=== PATIENT | female | born 1950 | race Caucasian/White ===

== ENCOUNTER 2018-05-18 22:25 | Emergency (ER) | payer MEDICARE, OTHER, SELFPAY ==
[2018-05-18 22:41] VITALS: BP 156/62; PULSE 76; RESP 14; TEMP 37.2; O2SAT 98; BMI 28.3
[2018-05-18 23:08] VITALS: BP 156/62; PULSE 76; RESP 14; TEMP 37.2; O2SAT 98; BMI 28.3
--- NOTE | 2018-05-18 23:20 | ED_ITS ---
HPI - Female Genitourinary General Chief complaint: Urogenital-Female Stated complaint: states bladder infection Time Seen by Provider: 05/18/18 22:37 Source: patient and family Mode of arrival: ambulatory Limitations: no limitations History of Present Illness HPI Narrative: Patient presents to the emergency department with a chief complaint urinary frequency, urgency, dysuria and hematuria over the course of the day. She denies fever, chills or back pain but does admit to some mild nausea. She has had chills but not any shaking or suggestion of rigors. MD Complaint: dysuria and UTI Onset (ago): hour(s) Female Urogenital Radiation: Suprapubic Quality: Aching Duration: constant Relieving factors: none Exacerbating factors: none Urinary symptoms: Difficulty Urinating, Dysuria, Frequency, Hematuria and Urgency Related Data Previous Rx's Medication Instructions Recorded levothyroxine [Synthroid] 0.075 mg PO QAM #90 tab 06/20/17 azithromycin [Zithromax] 250 mg PO QDAY #6 tab 08/16/17 cephalexin [Keflex] 500 mg PO QID 7 Days #28 cap 05/18/18 Allergies Allergy/AdvReac Type Severity Reaction Status Date / Time No Known Drug Allergies Allergy Verified 05/18/18 22:41 Review of Systems Review of Systems All systems reviewed & are unremarkable except as noted in HPI and below Constitutional Denies chills, Denies fever(s), Denies lethargy and Denies weakness Eyes Denies change in vision, Denies eye discharge, Denies irritation and Denies loss of vision ENT Ears, Nose, Mouth, and Throat: Denies change in voice, Denies neck pain and Denies sore throat Cardiovascular Denies chest pain, Denies irregular heart rhythm, Denies lightheadedness, Denies palpitations, Denies dyspnea, Denies dyspnea on exertion and Denies orthopnea Respiratory Denies cough, Denies dyspnea, Denies dyspnea on exertion and Denies wheezing Gastrointestinal Gastrointestinal: Denies abdominal pain, Denies change in bowel habits, Denies diarrhea, Reports nausea and Denies vomiting Genitourinary Denies hematuria, Reports urinary frequency, Reports dysuria, Denies flank pain , Denies urinary incontinence and Reports urinary urgency Musculoskeletal Denies neck pain Integumentary/Breasts Denies pruritus, Denies erythema, Denies rash and Denies wounds Neurologic Denies confusion, Denies loss of vision and Denies weakness Psychiatric Denies anxiety, Denies confusion, Denies depression, Denies homicidal ideation and Denies suicidal ideation Endocrine Denies palpitations Hematologic/Lymphatic Denies easy bruising Allergic/Immunologic Denies wheezing [facility] Surgical History Status post hysterectomy (09/20/16) Social History Smoking Status: Never smoker Exam Initial Vital Signs Initial Vital Signs: Vital Signs Temperature 98.9 F 05/18/18 22:41 Pulse Rate 76 05/18/18 22:41 Respiratory Rate 14 05/18/18 22:41 Blood Pressure 156/62 H 05/18/18 22:41 Pulse Oximetry 98 05/18/18 22:41 Const General: cooperative and well developed Nutritional Appearance: well nourished Orientation: alert, awake, oriented x3 and not confused HENMT Head: normocephalic and atraumatic Ears: external ears normal and TM's normal bilaterally Nose: external nose normal and No nasal discharge Face and sinus: sinuses nontender, face symmetric, no sinus tenderness and No dry mucous membranes Mouth: oral mucosae normal and moist mucous membranes Teeth and gingiva: dentition normal Throat: tonsils normal and uvula midline Resp Effort & Inspection: normal respiratory effort, able to speak in complete sentences, no respiratory distress and no use of accessory muscles Auscultation: clear to auscultation bilaterally, no rales, no rhonchi and no wheezes Cardio Rate: regular rate Rhythm: regular rhythm Heart Sounds: no click, no gallops, no murmurs and no rubs Pulses: normal peripheral pulses Skin General: no rashes or lesions noted, No jaundice and No petechiae Course Orders Ordered: Discontinued Medications Cefazolin Sodium (Keflex) 1 bottle [facility] [place] SEEINSTR ONE Stop: 05/19/18 00:00 Vital Signs - 8 hr 05/18/18 22:41 05/18/18 23:08 Temperature 98.9 F 98.9 F Pulse Rate 76 76 Respiratory Rate 14 14 Blood Pressure 156/62 H 156/62 H Pulse Oximetry 98 98 MDM - Female Genitourinary Lab Data Lab Results 05/18/18 Range/Units 22:30 Urine Color Red Urine Appearance Sl cloudy Urine pH 7.5 (4.5-8.0) Ur Specific [place] 1.010 (1.000-1.035) Urine Protein 2+ H (Negative) Urine Glucose (UA) Negative (Normal) g/dL Urine Ketones Negative (NEGATIVE) Urine Occult Blood 3+ H (Negative) Urine Nitrate Positive H (Negative) Urine Bilirubin Negative (NEGATIVE) Urine Urobilinogen 0.2 (0.2) E.U./dL Ur Leukocyte Esterase 2+ H (NEGATIVE) Urine RBC 30-100/hpf H (0-5/HPF) Urine WBC 30-100/hpf H (0-5/HPF) Ur Squamous Epith Cells 0-1 /hpf Urine Bacteria Few (2-10) H (None) Ur Culture Indicated? Specimen cultured Discharge Plan Departure Patient Disposition: Home, Self-Care Clinical Impression: Urinary tract infection Discharge Date/Time: 05/19/18 00:34 Interventions: ED Discharge Assessment Last Done: 05/19/18 00:33 Instructions: DI for Urinary Tract Infection (UTI) Activity Restrictions/Additional Instructions: *You have been diagnosed with [ acute urinary tract infection, possible early pyelonephritis ] *What to do: *Take medications as directed *Follow up with your primary care provider in 2-3 days [and follow up with ortho, urology etc] *Return to ER if you should have [such as] [or] any new, worsening or concerning symptoms Prescriptions: New cephalexin [Keflex] 500 mg capsule 500 mg PO QID 7 Days Qty: 28 RF: 0 No Action levothyroxine [Synthroid] 75 MCG tablet 0.075 mg PO QAM Qty: 90 RF: 3 azithromycin [Zithromax] 250 MG tablet 250 mg PO QDAY Qty: 6 RF: 0 Referrals: Desirae Hernandez DO [Primary Care Provider] -
[2018-05-18 23:42] LABS: Appearance Urine UA SL CLOUDY; Bilirubin Urine UA NEGATIVE (NEGATIVE); Color Urine UA RED; Glucose Urine UA NEGATIVE (Normal); Ketones Urine UA NEGATIVE (NEGATIVE); Leukocyte Esterase Urine UA 2+ (NEGATIVE); Occult Blood Urine UA 3+ (Negative); Protein Urine UA 2+ (Negative); Urobilinogen Urine UA 0.2 E.U./dL (0.2); pH Urine UA 7.5 (4.5-8.0)
[2018-05-18 23:45] LABS: Bacteria Urine Few (2-10); Culture Indicated Urine Specimen Cultured; Nitrite Urine UA POSITIVE (Negative); RBC Urine 30-100/HPF (0-5/HPF); Squamous Epithelial Cell Urine 0-1 /HPF; WBC Urine 30-100/HPF (0-5/HPF)
[2018-05-19 00:33] VITALS: BP 133/67; PULSE 100; RESP 16; O2SAT 98
== END 2018-05-19 00:34 | disposition home or self-care (01) ==
PROVIDERS: Emergency Provider Emergency Medicine; Family Provider Family Medicine; PCP Family Medicine
DX: N39.0 Urinary tract infection, site not specified (principal)
CPT/HCPCS: 81001; 87077; 87086; 87186; 99282; 99283

== ENCOUNTER → 2018-07-28 08:39 | Outpatient (CLI) | payer MEDICARE, OTHER, SELFPAY ==
[2018-07-28 09:36] LABS: Add Manual Diff / Slide Review NO; Basophils Percent Auto 0.3 % (0-2); Eosinophils Percent Auto 2.4 % (2-4); Hematocrit 38.7 % (36-46); Hemoglobin 13.1 g/dL (12.0-16.0); Lymphocytes Percent Auto 14.1 % (25-40); Mean Corpuscular HGB Conc 33.7 % (30-36); Mean Corpuscular Hemoglobin 31.2 PG (26-34); Mean Corpuscular Volume 92.3 fL (80-100); Monocytes Percent Auto 5.6 % (3-14); Neutrophils Absolute Auto 5400 /uL (3000-5900); Neutrophils Percent Auto 77.6 % (50-75); Platelet Count 258 X10^3/uL (150-400); Red Blood Cell Count 4.19 X10^6/uL (4.0-5.2); Red Cell Distribution Width 14.1 % (11.6-14.8); White Blood Cell Count 6.9 X10^3/uL (4.5-11.0)
[2018-07-28 09:47] LABS: Alanine Aminotransferase 35 IU/L (9-52); Albumin Globulin Ratio 1.3 (1.0-2.8); Alkaline Phosphatase 76 U/L (38-126); Aspartate Aminotransferase 27 IU/L (14-36); BUN Creatinine Ratio 23.8 (6-22); Bilirubin Total 0.7 mg/dL (0.2-1.3); Blood Urea Nitrogen 19 mg/dL (7-17); Calcium 9.3 mg/dL (8.4-10.2); Carbon Dioxide 31 mmol/L (22-32); Chloride 106 mmol/L (98-107); Cholesterol 165 mg/dL (140-199); Estimated Glomerular Filt Rate > 60.0 mL/min (>60); Glucose 96 mg/dL (80-110); HDL Cholesterol 57 mg/dL (40-60); HEMOLYSIS < 15 (0-50); LDL Cholesterol Calculated 92 mg/dL (<100); Potassium 4.3 mmol/L (3.4-5.1); Sodium 145 mmol/L (137-145); Triglycerides 78 mg/dL (35-150)
[2018-07-28 11:27] LABS: Free T3, Triiodothyronine Free 2.72 pg/mL (2.77-5.27); Free T4, Direct Thyroxine 1.45 ng/dL (0.78-2.19)
[2018-07-28 12:38] LABS: Thyroid Stimulating Hormone 0.93 uIU/mL (0.47-4.68)
[2018-08-01 14:05] LABS: Fecal Immunochemical Test NOT DETECTED
== END ==
PROVIDERS: Family Provider Family Medicine; PCP Family Medicine; Visit Provider Family Medicine
DX: E03.9 Hypothyroidism, unspecified (principal); Z13.220 Encounter for screening for lipoid disorders; Z51.81 Encounter for therapeutic drug level monitoring
CPT/HCPCS: 80053; 80061; 82274; 84439; 84443; 84481; 85025

== ENCOUNTER → 2018-08-03 13:11 | Outpatient (CLI) | payer MEDICARE, OTHER, SELFPAY | PROVIDERS: PCP Family Medicine; Visit Provider Family Medicine | DX: Z13.820 Encounter for screening for osteoporosis (principal); M85.852 Other specified disorders of bone density and structure, left thigh; Z78.0 Asymptomatic menopausal state; E07.9 Disorder of thyroid, unspecified; E28.39 Other primary ovarian failure; Z82.62 Family history of osteoporosis | CPT/HCPCS: 77080 ==

== ENCOUNTER → 2018-08-16 09:09 | Outpatient (CLI) | payer MEDICARE, OTHER, SELFPAY ==
--- NOTE | 2018-08-16 | DI.MG.S_ITS ---
BILATERAL DIGITAL SCREENING MAMMOGRAM 3D/2D WITH CAD: 08/16/2018 CLINICAL: Routine screening. Comparison is made to exams dated: 05/20/2017 mammogram, 05/18/2016 mammogram, and 08/30/2012 mammogram - [facility]. The tissue of both breasts is heterogeneously dense. This may lower the sensitivity of mammography. Current study was also evaluated with a Computer Aided Detection (CAD) system. No significant masses, calcifications, or other findings are seen in either breast. There has been no significant interval change. IMPRESSION: NEGATIVE There is no mammographic evidence of malignancy. A 1 year screening mammogram is recommended.(08/17/2019) This exam was interpreted at Station ID: [id number]. NOTE: For mammograms, a report in lay terms will be sent to the patient. Approximately 15% of breast malignancies will not be visualized mammographically. In the management of a palpable breast mass, a negative mammogram must not discourage biopsy of a clinically suspicious lesion. Electronically Signed By: oFrest landon/nickie:08/16/2018 11:07:53 letter sent: Normal Exam ACR BI-RADS Category 1: Negative 3341F
== END ==
PROVIDERS: PCP Family Medicine; Visit Provider Family Medicine
DX: Z12.31 Encounter for screening mammogram for malignant neoplasm of breast (principal)
CPT/HCPCS: 77063; 77067

== ENCOUNTER → 2019-02-02 09:19 | Outpatient (CLI) | payer MEDICARE, OTHER, SELFPAY | PROVIDERS: PCP Family Medicine; Visit Provider Physician Assistant | DX: R30.0 Dysuria (principal) | CPT/HCPCS: 87086 ==

== ENCOUNTER → 2019-05-15 07:35 | Outpatient (CLI) | payer MEDICARE, OTHER, SELFPAY ==
[2019-05-15 08:04] LABS: Add Manual Diff / Slide Review NO; Basophils Absolute Auto 0 /uL (0-100); Basophils Percent Auto 0.5 % (0-2); Eosinophils Absolute Auto 200 /uL (0-450); Eosinophils Percent Auto 4.8 % (2-4); Hematocrit 36.9 % (36-46); Hemoglobin 12.4 g/dL (12.0-16.0); Lymphocytes Absolute Auto 1100 /uL (1100-4500); Lymphocytes Percent Auto 23.9 % (25-40); Mean Corpuscular HGB Conc 33.5 % (30-36); Mean Corpuscular Hemoglobin 31.2 PG (26-34); Monocytes Absolute Auto 300 /uL (0-900); Monocytes Percent Auto 7.3 % (3-14); Neutrophils Absolute Auto 2900 /uL (1500-7000); Neutrophils Percent Auto 63.5 % (50-75); Platelet Count 252 X10^3/uL (150-400); Red Blood Cell Count 3.97 X10^6/uL (4.0-5.2); Red Cell Distribution Width 14.2 % (11.6-14.8); White Blood Cell Count 4.6 X10^3/uL (4.5-11.0)
[2019-05-15 08:20] LABS: Alanine Aminotransferase 20 IU/L (9-52); Albumin 3.9 g/dL (3.5-5.0); Albumin Globulin Ratio 1.4 (1.0-2.8); Alkaline Phosphatase 60 U/L (38-126); Aspartate Aminotransferase 26 IU/L (14-36); BUN Creatinine Ratio 21.3 (6-22); Bilirubin Total 0.4 mg/dL (0.2-1.3); Blood Urea Nitrogen 17 mg/dL (7-17); Calcium 8.8 mg/dL (8.4-10.2); Carbon Dioxide 30 mmol/L (22-32); Chloride 106 mmol/L (98-107); Cholesterol 167 mg/dL (140-199); Estimated Glomerular Filt Rate > 60.0 mL/min (>60); Globulin 2.8 g/dL (1.7-4.1); Glucose 106 mg/dL (80-110); HDL Cholesterol 59 mg/dL (40-60); HEMOLYSIS < 15 (0-50); LDL Cholesterol Calculated 94 mg/dL (<100); Potassium 4.1 mmol/L (3.4-5.1); Sodium 143 mmol/L (137-145); Total Protein 6.7 g/dL (6.3-8.2); Triglycerides 71 mg/dL (35-150)
[2019-05-15 09:15] LABS: Free T4, Direct Thyroxine 1.27 ng/dL (0.78-2.19)
[2019-05-15 09:29] LABS: Thyroid Stimulating Hormone 2.69 uIU/mL (0.47-4.68)
[2019-05-15 09:33] LABS: TSH w/ Reflex to FT4 2.67 uIU/mL (0.47-4.68)
== END ==
PROVIDERS: PCP Family Medicine; Visit Provider Family Medicine
DX: E03.9 Hypothyroidism, unspecified (principal); M85.80 Other specified disorders of bone density and structure, unspecified site; Z51.81 Encounter for therapeutic drug level monitoring
CPT/HCPCS: 36415; 80053; 80061; 84439; 84443; 85025

== ENCOUNTER → 2019-07-30 12:04 | Outpatient (CLI) | payer MEDICARE, OTHER, SELFPAY ==
--- NOTE | 2019-07-30 12:06 | DI.RAD.S_ITS ---
PROCEDURE: XR ANKLE LT MIN 3V INDICATIONS: Left ankle pain TECHNIQUE: 3 views of the ankle were acquired. COMPARISON: None. FINDINGS: Bones: No fractures or dislocations. Ankle mortise is normally aligned. No suspicious bony lesions. Soft tissues: No tibiotalar joint effusion. Achilles tendon appears normal. IMPRESSION: No ankle fracture or dislocation. Intact ankle mortise. Dictated by: Collin Linton M.D. on 07/30/2019 at 13:47 Approved by: Collin Linton M.D. on 07/30/2019 at 13:48
--- NOTE | 2019-07-30 12:06 | DI.RAD.S_ITS ---
PROCEDURE: XR KNEE LT 3V INDICATIONS: Left knee pain and effusion TECHNIQUE: 3 views of the knee were acquired. COMPARISON: [facility], , KNEE 3V RIGHT, 05/03/2013, 10:08. FINDINGS: Bones: Moderate tricompartment osteoarthritis is seen more prominent in the medial femoral tibial compartment. No fractures or dislocations. No significant patellar subluxation. No suspicious bony lesions. Soft tissues: No joint effusion. No suspicious soft tissue calcifications. IMPRESSION: Moderate tricompartmental osteoarthritis more prominent in medial femoral tibial compartment. Dictated by: Collin Linton M.D. on 07/30/2019 at 13:48 Approved by: Collin Linton M.D. on 07/30/2019 at 13:51
== END ==
PROVIDERS: PCP Family Medicine; Visit Provider Family Medicine
DX: M25.572 Pain in left ankle and joints of left foot (principal); S86.012A Strain of left Achilles tendon, initial encounter; M25.562 Pain in left knee; M17.12 Unilateral primary osteoarthritis, left knee
CPT/HCPCS: 73562; 73610

== ENCOUNTER → 2019-08-30 08:47 | Outpatient (CLI) | payer MEDICARE, OTHER, SELFPAY ==
--- NOTE | 2019-08-30 | DI.MG.S_ITS ---
BILATERAL DIGITAL SCREENING MAMMOGRAM 3D/2D WITH CAD: 08/30/2019 CLINICAL: Routine screening. Comparison is made to exams dated: 08/16/2018 mammogram, 05/20/2017 mammogram, and 08/30/2012 mammogram - [facility]. The tissue of both breasts is heterogeneously dense. This may lower the sensitivity of mammography. Current study was also evaluated with a Computer Aided Detection (CAD) system. No significant masses, calcifications, or other findings are seen in either breast. There has been no significant interval change. IMPRESSION: NEGATIVE There is no mammographic evidence of malignancy. A 1 year screening mammogram is recommended. This exam was interpreted at Station ID: [id number]. NOTE: For mammograms, a report in lay terms will be sent to the patient. Approximately 15% of breast malignancies will not be visualized mammographically. In the management of a palpable breast mass, a negative mammogram must not discourage biopsy of a clinically suspicious lesion. Electronically Signed By: Casper castle/nickie:08/30/2019 10:43:57 letter sent: Normal Exam ACR BI-RADS Category 1: Negative 3341F
== END ==
PROVIDERS: PCP Family Medicine; Visit Provider Family Medicine
DX: Z12.31 Encounter for screening mammogram for malignant neoplasm of breast (principal)
CPT/HCPCS: 77063; 77067

== ENCOUNTER → 2020-04-24 08:27 | Outpatient (CLI) | payer MEDICARE, OTHER, SELFPAY ==
[2020-04-24 08:57] LABS: Hematocrit 36.3 % (36-46); Hemoglobin 12.5 g/dL (12.0-16.0); Mean Corpuscular HGB Conc 34.5 % (30-36); Mean Corpuscular Volume 92.6 fL (80-100); Platelet Count 252 X10^3/uL (150-400); Red Blood Cell Count 3.92 X10^6/uL (4.0-5.2); Red Cell Distribution Width 13.6 % (11.6-14.8); White Blood Cell Count 4.8 X10^3/uL (4.5-11.0)
[2020-04-24 09:07] LABS: Hemoglobin A1C% w Est Avg Glu 5.9 % (4.0-6.0)
[2020-04-24 09:17] LABS: Alanine Aminotransferase 28 IU/L (<35); Albumin 3.9 g/dL (3.5-5.0); Albumin Globulin Ratio 1.6 (1.0-2.8); Alkaline Phosphatase 62 U/L (38-126); Aspartate Aminotransferase 29 IU/L (14-36); BUN Creatinine Ratio 22.4 (6-22); Bilirubin Total 0.5 mg/dL (0.2-1.3); Blood Urea Nitrogen 15 mg/dL (7-17); Calcium 9.2 mg/dL (8.4-10.2); Carbon Dioxide 27 mmol/L (22-32); Chloride 106 mmol/L (98-107); Cholesterol 176 mg/dL (140-199); Estimated Glomerular Filt Rate > 60.0 mL/min (>60); Globulin 2.5 g/dL (1.7-4.1); Glucose 102 mg/dL (80-110); HDL Cholesterol 63 mg/dL (40-60); HEMOLYSIS < 15 (0-50); LDL Cholesterol Calculated 99 mg/dL (<100); Potassium 4.3 mmol/L (3.4-5.1); Sodium 137 mmol/L (137-145); Total Protein 6.4 g/dL (6.3-8.2); Triglycerides 68 mg/dL (35-150)
== END ==
PROVIDERS: PCP Registered Nurse Diabetes Educator; Referring Provider Registered Nurse Diabetes Educator; Visit Provider Registered Nurse Diabetes Educator
DX: E03.9 Hypothyroidism, unspecified (principal); M85.80 Other specified disorders of bone density and structure, unspecified site; Z86.39 Personal history of other endocrine, nutritional and metabolic disease
CPT/HCPCS: 36415; 80053; 80061; 83036; 84443; 85027

== ENCOUNTER → 2020-05-02 11:13 | Outpatient (CLI) | payer MEDICARE, OTHER, SELFPAY ==
[2020-05-05 13:36] LABS: Fecal Immunochemical Test Negative (Negative)
== END ==
PROVIDERS: PCP Registered Nurse Diabetes Educator; Referring Provider Registered Nurse Diabetes Educator; Visit Provider Registered Nurse Diabetes Educator
DX: Z12.11 Encounter for screening for malignant neoplasm of colon (principal)
CPT/HCPCS: 82274

== ENCOUNTER → 2020-06-09 09:49 | Outpatient (CLI) | payer MEDICARE, OTHER, SELFPAY | PROVIDERS: PCP Registered Nurse Diabetes Educator; Referring Provider Registered Nurse Diabetes Educator; Visit Provider Registered Nurse Diabetes Educator | DX: M85.852 Other specified disorders of bone density and structure, left thigh (principal); Z78.0 Asymptomatic menopausal state; Z82.62 Family history of osteoporosis | CPT/HCPCS: 77080 ==

== ENCOUNTER → 2020-09-03 12:43 | Outpatient (CLI) | payer MEDICARE, OTHER, SELFPAY ==
--- NOTE | 2020-09-03 | DI.MG.S_ITS ---
BILATERAL DIGITAL SCREENING MAMMOGRAM 3D/2D WITH CAD: 09/03/2020 CLINICAL: Routine screening. Comparison is made to exams dated: 08/30/2019 mammogram, 08/16/2018 mammogram, and 05/20/2017 mammogram - [facility]. The tissue of both breasts is heterogeneously dense. This may lower the sensitivity of mammography. Current study was also evaluated with a Computer Aided Detection (CAD) system. No significant masses, calcifications, or other findings are seen in either breast. There has been no significant interval change. IMPRESSION: NEGATIVE There is no mammographic evidence of malignancy. A 1 year screening mammogram is recommended. This exam was interpreted at Station ID: [id number]. NOTE: For mammograms, a report in lay terms will be sent to the patient. Approximately 15% of breast malignancies will not be visualized mammographically. In the management of a palpable breast mass, a negative mammogram must not discourage biopsy of a clinically suspicious lesion. Electronically Signed By: Na mancini/nickie:09/03/2020 17:03:21 letter sent: Normal Exam ACR BI-RADS Category 1: Negative 3341F
== END ==
PROVIDERS: PCP Registered Nurse Diabetes Educator; Referring Provider Registered Nurse Diabetes Educator; Visit Provider Registered Nurse Diabetes Educator
DX: Z12.31 Encounter for screening mammogram for malignant neoplasm of breast (principal)
CPT/HCPCS: 77063; 77067

== ENCOUNTER → 2020-10-15 11:16 | Outpatient (CLI) | payer MEDICARE, OTHER, SELFPAY ==
[2020-10-15 18:57] LABS: Appearance Urine UA SL CLOUDY; Bilirubin Urine UA NEGATIVE (NEGATIVE); Color Urine UA YELLOW; Glucose Urine UA NEGATIVE (Negative); Ketones Urine UA NEGATIVE (NEGATIVE); Leukocyte Esterase Urine UA 3+ (NEGATIVE); Nitrite Urine UA POSITIVE (Negative); Occult Blood Urine UA 1+ (Negative); Protein Urine UA NEGATIVE (Negative); Specific Gravity Urine UA <=1.005 (1.000-1.035); Urobilinogen Urine UA 0.2 E.U./dL (0.2)
[2020-10-15 19:04] LABS: RBC Urine 1-5/HPF (0-5/HPF); WBC Urine 30-100/HPF (0-5/HPF)
[2020-10-15 19:05] LABS: Bacteria Urine Many (>30); Culture Indicated Urine Specimen Cultured; Squamous Epithelial Cell Urine 0-1 /HPF (0-5/HPF)
== END ==
PROVIDERS: PCP Registered Nurse Diabetes Educator; Visit Provider Nurse Practitioner Family
DX: R30.0 Dysuria (principal)
CPT/HCPCS: 81001; 87077; 87086; 87186

== ENCOUNTER → 2020-11-13 13:06 | Outpatient (CLI) | payer MEDICARE, OTHER, SELFPAY ==
[2020-11-13 13:44] LABS: Appearance Urine UA CLOUDY; Bilirubin Urine UA NEGATIVE (NEGATIVE); Color Urine UA YELLOW; Glucose Urine UA NEGATIVE (Negative); Ketones Urine UA NEGATIVE (NEGATIVE); Leukocyte Esterase Urine UA 3+ (NEGATIVE); Nitrite Urine UA POSITIVE (Negative); Occult Blood Urine UA 1+ (Negative); Protein Urine UA NEGATIVE (Negative); Urobilinogen Urine UA 0.2 E.U./dL (0.2)
[2020-11-13 13:51] LABS: Amorphous Sediment Urine 1+; Bacteria Urine Many (>30); RBC Urine 1-5/HPF (0-5/HPF); Squamous Epithelial Cell Urine 1-5 /HPF (0-5/HPF); WBC Urine >100/HPF (0-5/HPF); pH Urine UA 5.5 (4.5-8.0)
[2020-11-13 13:52] LABS: Culture Indicated Urine Specimen Cultured; Mucus Urine 1+ (Negative)
== END ==
PROVIDERS: PCP Registered Nurse Diabetes Educator; Referring Provider Registered Nurse Diabetes Educator; Visit Provider Registered Nurse Diabetes Educator
DX: R30.0 Dysuria (principal); R82.90 Unspecified abnormal findings in urine
CPT/HCPCS: 81001; 87077; 87086; 87186

== ENCOUNTER → 2021-04-22 07:44 | Outpatient (CLI) | payer MEDICARE, OTHER, SELFPAY ==
[2021-04-22 09:41] LABS: Hematocrit 37.4 % (36-46); Hemoglobin 12.8 g/dL (12.0-16.0); Mean Corpuscular HGB Conc 34.2 % (30-36); Mean Corpuscular Hemoglobin 31.5 PG (26-34); Mean Corpuscular Volume 92.1 fL (80-100); Platelet Count 269 X10^3/uL (150-400); Red Blood Cell Count 4.06 X10^6/uL (4.0-5.2); White Blood Cell Count 5.1 X10^3/uL (4.5-11.0)
[2021-04-22 10:05] LABS: Alanine Aminotransferase 27 IU/L (<35); Albumin 3.9 g/dL (3.5-5.0); Albumin Globulin Ratio 1.5 (1.0-2.8); Alkaline Phosphatase 63 U/L (38-126); Aspartate Aminotransferase 32 IU/L (14-36); BUN Creatinine Ratio 23.9 (6-22); Bilirubin Total 0.5 mg/dL (0.2-1.3); Blood Urea Nitrogen 17 mg/dL (7-17); Calcium 9.6 mg/dL (8.4-10.2); Carbon Dioxide 28 mmol/L (22-32); Chloride 104 mmol/L (98-107); Cholesterol 194 mg/dL (140-199); Estimated Glomerular Filt Rate > 60.0 mL/min (>60); Globulin 2.6 g/dL (1.7-4.1); Glucose 94 mg/dL (80-110); HDL Cholesterol 66 mg/dL (40-60); HEMOLYSIS < 15 (0-50); LDL Cholesterol Calculated 118 mg/dL (<100); Potassium 4.6 mmol/L (3.4-5.1); Sodium 139 mmol/L (137-145); Total Protein 6.5 g/dL (6.3-8.2); Triglycerides 52 mg/dL (35-150)
== END ==
PROVIDERS: PCP Registered Nurse Diabetes Educator; Referring Provider Registered Nurse Diabetes Educator; Visit Provider Registered Nurse Diabetes Educator
DX: E03.9 Hypothyroidism, unspecified (principal); M85.80 Other specified disorders of bone density and structure, unspecified site
CPT/HCPCS: 36415; 80053; 80061; 84443; 85027

== ENCOUNTER → 2021-04-29 10:03 | Outpatient (CLI) | payer MEDICARE, OTHER, SELFPAY ==
--- NOTE | 2021-04-29 10:08 | DI.RAD.S_ITS ---
PROCEDURE: XR HIP W PEL IF DONE RT 4V INDICATIONS: eval R hip pain x 1 month, no injury TECHNIQUE: AP pelvis with lateral view(s) of the right hip(s). COMPARISON: None. FINDINGS: Bones: No fractures or dislocations. Pelvic ring appears intact. No suspicious bony lesions. Moderate bilateral degenerative hip joint space narrowing. Periarticular osteophytes are present. No erosions. Degenerative changes are present within the lower lumbar spine. Soft tissues: The visualized bowel gas pattern is normal. No suspicious soft tissue calcifications. IMPRESSION: Moderate arthritic change within the hips bilaterally as well as lower lumbar spine. Dictated by: Ofelia Brenner M.D. on 04/29/2021 at 10:59 Approved by: Ofelia Brenner M.D. on 04/29/2021 at 11:00
== END ==
PROVIDERS: PCP Registered Nurse Diabetes Educator; Referring Provider Registered Nurse Diabetes Educator; Visit Provider Registered Nurse Diabetes Educator
DX: M25.551 Pain in right hip (principal); M47.816 Spondylosis without myelopathy or radiculopathy, lumbar region
CPT/HCPCS: 73502

== ENCOUNTER 2021-07-25 21:37 | Emergency (ER) | payer MEDICARE, OTHER, SELFPAY ==
[2021-07-25 21:40] VITALS: BP 202/88; PULSE 76; RESP 14; TEMP 36.2; O2SAT 99; BMI 28.3
[2021-07-25] MEDS: LIDO 1%/SOD BICARB 8.4% (10ML) 10 ML SYRINGE INJ (21:46)
[2021-07-25] MEDS: TET,DIPH,PERTUSS(ACELL),VAC/PF 0.5 ML SYRINGE IM (22:04)
--- NOTE | 2021-07-25 22:19 | ED_ITS ---
HPI - Wound/Laceration General Chief Complaint: Wound/Laceration Stated Complaint: Cut middle finger and pinky, sliced tips Time Seen by Provider: 07/25/21 21:42 Source: patient Mode of arrival: Ambulatory Limitations: no limitations History of Present Illness HPI narrative: 71-year-old female nonsmoker with history hypothyroid presents with her in the chief complaint of an accidental injury to her right h and yesterday. She was cooking and using a mandoline and accidentally cut the tips of her 3rd and 5th fingers on her right hand. She has had ongoing pain and bleeding for the past 24 hours and wanted to be seen for evaluation. Her tetanus will need to be updated. She denies any numbness or tingling. She denies other injury. She is otherwise well and free of complaint Related Data Home Medications Medication Instructions Recorded Confirmed calcium PO 07/26/18 04/29/21 Previous Rx's Medication Instructions Recorded alendronate 35 mg tablet 35 mg PO QWEEK #12 tab 04/29/21 levothyroxine 75 mcg tablet 75 mcg PO QAM #90 tab 04/29/21 (Synthroid) cephalexin 500 mg capsule 500 mg PO Q6H 7 Days #28 cap 07/25/21 Allergies Allergy/AdvReac Type Severity Reaction Status Date / Time No Known Drug Allergies Allergy Verified 04/29/21 08:58 Review of Systems Review of Systems Narrative: GENERAL: Denies chills, fatigue, malaise, fever, sweats. HEENT: Denies sinus pain, ear pain, sore throat, difficulty swallowing, dizziness. RESPIRATORY: Denies dyspnea, cough, wheezing, hemoptysis, sputum. CARDIOVASCULAR: Denies chest pain, palpitations, orthopnea, edema, GASTROINTESTINAL: Denies nausea, vomiting, abdominal pain, diarrhea, constipation, melena. : Denies dysuria, frequency, incontinence, hematuria, urinary retention. MUSCULOSKELETAL: denies weakness, joint pain, or bony pain SKIN: Denies rash, skin lesions, or other NEUROLOGIC: Denies weakness, headache, numbness, change in speech, confusion, seizures, incoordination. PSYCHIATRIC: No concerning psychosocial issues. 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 Social History Smoking Status: Never smoker Smoking Status: Never smoker alcohol intake frequency: 0-2 drinks per day Substance Use Type: does not use Exam Narrative Exam Narrative: GEN: AOx3 and in mild distress, tearful and anxious EYES: Pupils are equal, round, and reactive to light and accommodation. Extraoccular muscles are intact bilaterally. There is no subconjunctival hemorrhage or exudate. CHEST: Lungs are clear to auscultation bilaterally and free of wheezes, rales, or rhonchi. Heart rate is regular rhythm, there are no murmurs, clicks, rubs, or gallops. There is no chest wall tenderness. ABD: Abdomen is soft and nontender. There is no guarding or rebound. Bowel sounds are normal in all 4 quadrants. There is no mass or organomegaly. EXT: Full painless ROM of all extremities with no loss of sensation or strength. SKIN: Patient has actively bleeding avulsion lacerations of the tip of 3rd and 5th fingers. There is a small portion of nail bed involved on the 5th finger. No bone exposure. Both wounds are approximately 0.5cm x 1.0cm and will require a single suture each for bleeding control Warm, pink, and dry. No erythema or rash Initial Vital Signs Initial Vital Signs: Vital Signs Temperature 97.1 F L 07/25/21 21:40 Pulse Rate 76 07/25/21 21:40 Respiratory Rate 14 07/25/21 21:40 Blood Pressure 202/88 H 07/25/21 21:40 Pulse Oximetry 99 07/25/21 21:40 Procedures Laceration Repair Laceration 1: Site: hand (avulsion to tip of 3rd and 5th fingers each require 1 suture for hemostasis) Size (cm): 0.5 Description: other (avulsion) Pre-repair: wound explored Skin layer closed with: vicryl Size (cm): 5-0 Number of sutures: 1 Technique: simple, interrupted Course Orders Ordered: Discontinued Medications Diphtheria/Tetanus/Acell Pertussis (Tet,Diph,Pertuss(Acell),Vac/Pf 0.5 Ml Syringe) 0.5 ml IM .ONCE ONE Stop: 07/25/21 21:57 Last Admin: 07/25/21 22:04 Dose: 0.5 ml Documented by: SPENCER Lidocaine/Sodium Bicarbonate (Lido 1%/Sod Bicarb 8.4% (10ml) 10 Ml Syringe) 10 ml INJ NOW ONE Stop: 07/25/21 21:43 Last Admin: 07/25/21 21:46 Dose: 10 ml Documented by: SPENCER Vital Signs Vital signs: Vital Signs - 8 hr 07/25/21 21:40 07/25/21 22:32 Temperature 97.1 F L Pulse Rate 76 Respiratory Rate 14 Blood Pressure 202/88 H 164/70 H Pulse Oximetry 99 Discharge Plan Departure Patient Disposition: Home Clinical Impression: Laceration of finger of right hand with complication Qualifiers: Encounter type: initial encounter Qualified Code(s): S61.219A - Laceration without foreign body of unspecified finger without damage to nail, initial encounter Instructions: DI for Laceration Repair Activity Restrictions/Additional Instructions: *You have been diagnosed with [avulsion lacerations to fingers of right hand with tissue loss *What to do: *Please continue to take your regular medications as directed. [ x] New medication prescriptions sent to your pharmacy: [[facility]] [ ] New medication written as a paper prescription [ ] No new medications given *Please follow up with your primary care provider in 2-3 days, call for an appointment. Let them know you were seen in the Emergency Department and that we ask that you be seen in follow up. We will electronically transmit a record of today's note if your PCP is in our system * as we discussed you will need follow-up with wound care and I have attempted to send a referral. If you do not hear from them by Tuesday please call the number below and let them know that you were seen in the emergency de partment and we wanted seen in follow-up. *Return to Emergency Department if you should have any new, worsening or concerning symptoms, such as [fever greater than 101 F, shaking chills, worsening pain, persistent vomiting or other bothersome symptoms] Prescriptions: New cephalexin 500 mg capsule 500 mg PO Q6H 7 Days Qty: 28 RF: 0 No Action calcium PO RF: 0 alendronate 35 mg tablet 35 mg PO QWEEK Qty: 12 RF: 3 levothyroxine [Synthroid] 75 mcg tablet 75 mcg PO QAM Qty: 90 RF: 3 Referrals: Carlitos Beasley MD [Physician] - Arden Ba ARNP [Primary Care Provider] -
[2021-07-25 22:32] VITALS: BP 164/70
== END 2021-07-25 22:29 | disposition home or self-care (01) ==
PROVIDERS: Emergency Provider Emergency Medicine; PCP Registered Nurse Diabetes Educator
DX: S61.212A Laceration without foreign body of right middle finger without damage to nail, initial encounter (principal); S61.216A Laceration without foreign body of right little finger without damage to nail, initial encounter; W26.8XXA Contact with other sharp object(s), not elsewhere classified, initial encounter; Z23 Encounter for immunization
CPT/HCPCS: 12001; 90471; 99283; 90715

== ENCOUNTER → 2021-08-05 11:19 | Outpatient (CLI) | payer MEDICARE, OTHER, SELFPAY | PROVIDERS: Family Provider Registered Nurse Diabetes Educator; PCP Registered Nurse Diabetes Educator; Referring Provider Emergency Medicine; Visit Provider Family Medicine | DX: S61.202A Unspecified open wound of right middle finger without damage to nail, initial encounter (principal); S61.206A Unspecified open wound of right little finger without damage to nail, initial encounter | CPT/HCPCS: 11042; 97597; 99203; 99213 ==

== ENCOUNTER → 2021-08-12 15:07 | Outpatient (CLI) | payer MEDICARE, OTHER, SELFPAY | PROVIDERS: Family Provider Registered Nurse Diabetes Educator; PCP Registered Nurse Diabetes Educator; Referring Provider Registered Nurse Diabetes Educator; Visit Provider Family Medicine | DX: S61.202A Unspecified open wound of right middle finger without damage to nail, initial encounter (principal); S61.206A Unspecified open wound of right little finger without damage to nail, initial encounter | CPT/HCPCS: 11042 ==

== ENCOUNTER → 2021-08-19 14:58 | Outpatient (CLI) | payer MEDICARE, OTHER, SELFPAY | PROVIDERS: Family Provider Registered Nurse Diabetes Educator; PCP Registered Nurse Diabetes Educator; Referring Provider Registered Nurse Diabetes Educator; Visit Provider Family Medicine | DX: S61.202A Unspecified open wound of right middle finger without damage to nail, initial encounter (principal); S61.206A Unspecified open wound of right little finger without damage to nail, initial encounter | CPT/HCPCS: 99212; 99213 ==

== ENCOUNTER → 2021-10-27 17:16 | Outpatient (CLI) | payer MEDICARE, OTHER, SELFPAY ==
--- NOTE | 2021-10-27 | DI.MG.S_ITS ---
BILATERAL DIGITAL SCREENING MAMMOGRAM 3D/2D WITH CAD: 10/27/2021 CLINICAL: Routine screening. Comparison is made to exams dated: 09/03/2020 mammogram, 08/30/2019 mammogram, and 08/16/2018 mammogram - [facility]. There are scattered fibroglandular elements in both breasts. Current study was also evaluated with a Computer Aided Detection (CAD) system. No significant masses, calcifications, or other findings are seen in either breast. There has been no significant interval change. IMPRESSION: NEGATIVE There is no mammographic evidence of malignancy. A 1 year screening mammogram is recommended. This exam was interpreted at Station ID: [id number]. NOTE: For mammograms, a report in lay terms will be sent to the patient. Approximately 15% of breast malignancies will not be visualized mammographically. In the management of a palpable breast mass, a negative mammogram must not discourage biopsy of a clinically suspicious lesion. Electronically Signed By: Casper West M.D. at/nickie:10/28/2021 07:54:10 letter sent: Normal Exam ACR BI-RADS Category 1: Negative 3341F
== END ==
PROVIDERS: Family Provider Registered Nurse Diabetes Educator; PCP Registered Nurse Diabetes Educator; Referring Provider Registered Nurse Diabetes Educator; Visit Provider Registered Nurse Diabetes Educator
DX: Z12.31 Encounter for screening mammogram for malignant neoplasm of breast (principal)
CPT/HCPCS: 77063; 77067

== ENCOUNTER → 2022-01-05 12:01 | Outpatient (CLI) | payer MEDICARE, OTHER, SELFPAY | PROVIDERS: Family Provider Registered Nurse Diabetes Educator; PCP Registered Nurse Diabetes Educator; Visit Provider Physician Assistant | DX: R30.0 Dysuria (principal) | CPT/HCPCS: 87077; 87086; 87186 ==

== ENCOUNTER → 2022-08-30 09:01 | Outpatient (CLI) | payer MEDICARE, OTHER, SELFPAY ==
[2022-08-30 10:46] LABS: Hematocrit 37.8 % (36-46); Mean Corpuscular HGB Conc 34.3 % (30-36); Mean Corpuscular Hemoglobin 31.1 PG (26-34); Mean Corpuscular Volume 90.7 fL (80-100); Platelet Count 257 X10^3/uL (150-400); Red Blood Cell Count 4.16 X10^6/uL (4.0-5.2); Red Cell Distribution Width 14.5 % (11.6-14.8); White Blood Cell Count 5.3 X10^3/uL (4.5-11.0)
[2022-08-30 11:10] LABS: Alanine Aminotransferase 41 IU/L (<35); Albumin 4.1 g/dL (3.5-5.0); Albumin Globulin Ratio 1.3 (1.0-2.8); Alkaline Phosphatase 80 U/L (38-126); Aspartate Aminotransferase 40 IU/L (14-36); BUN Creatinine Ratio 14.6 (6-22); Bilirubin Total 0.6 mg/dL (0.2-1.3); Blood Urea Nitrogen 12 mg/dL (7-17); Calcium 9.3 mg/dL (8.4-10.2); Carbon Dioxide 28 mmol/L (22-32); Chloride 104 mmol/L (98-107); Cholesterol 190 mg/dL (140-199); Estimated Glomerular Filt Rate > 60 mL/min (>60); Globulin 3.1 g/dL (1.7-4.1); Glucose 106 mg/dL (80-110); HDL Cholesterol 56 mg/dL (40-60); HEMOLYSIS < 15 (0-50); LDL Cholesterol Calculated 122 mg/dL (<100); Potassium 4.5 mmol/L (3.4-5.1); Sodium 141 mmol/L (137-145); Total Protein 7.2 g/dL (6.3-8.2); Triglycerides 62 mg/dL (35-150)
[2022-08-30 11:39] LABS: TSH w/ Reflex to FT4 1.12 uIU/mL (0.47-4.68)
== END ==
PROVIDERS: Family Provider Registered Nurse Diabetes Educator; PCP Registered Nurse Diabetes Educator; Referring Provider Registered Nurse Diabetes Educator; Visit Provider Registered Nurse Diabetes Educator
DX: E03.9 Hypothyroidism, unspecified (principal); E78.00 Pure hypercholesterolemia, unspecified; R73.01 Impaired fasting glucose
CPT/HCPCS: 36415; 80053; 80061; 84443; 85027

== ENCOUNTER → 2022-10-05 08:43 | Outpatient (CLI) | payer MEDICARE, OTHER, SELFPAY ==
[2022-10-06 16:37] LABS: Fecal Immunochemical Test Negative (Negative)
== END ==
PROVIDERS: Family Provider Registered Nurse Diabetes Educator; PCP Registered Nurse Diabetes Educator; Referring Provider Registered Nurse Diabetes Educator; Visit Provider Registered Nurse Diabetes Educator
DX: Z12.11 Encounter for screening for malignant neoplasm of colon (principal); Z79.83 Long term (current) use of bisphosphonates; M81.0 Age-related osteoporosis without current pathological fracture
CPT/HCPCS: 77080; 82274

== ENCOUNTER → 2022-12-21 09:04 | Outpatient (CLI) | payer MEDICARE, OTHER, SELFPAY ==
[2022-12-21 10:49] LABS: Alanine Aminotransferase 53 IU/L (<35); Albumin 3.8 g/dL (3.5-5.0); Albumin Globulin Ratio 1.4 (1.0-2.8); Alkaline Phosphatase 81 U/L (38-126); Aspartate Aminotransferase 44 IU/L (14-36); Bilirubin Total 0.4 mg/dL (0.2-1.3); Bilirubin Unconjugated 0.2 mg/dL (0.0-1.1); Globulin 2.7 g/dL (1.7-4.1); HEMOLYSIS < 15 (0-50); Total Protein 6.5 g/dL (6.3-8.2)
== END ==
PROVIDERS: Family Provider Registered Nurse Diabetes Educator; PCP Registered Nurse Diabetes Educator; Referring Provider Registered Nurse Diabetes Educator; Visit Provider Registered Nurse Diabetes Educator
DX: R74.8 Abnormal levels of other serum enzymes (principal)
CPT/HCPCS: 36415; 80076

== ENCOUNTER → 2023-01-05 12:55 | Outpatient (CLI) | payer MEDICARE, OTHER, SELFPAY ==
--- NOTE | 2023-01-05 | DI.MG.S_ITS ---
BILATERAL DIGITAL SCREENING MAMMOGRAM 3D/2D WITH CAD: 01/05/2023 CLINICAL: Routine screening. Comparison is made to exams dated: 10/27/2021 mammogram, 09/03/2020 mammogram, 08/30/2019 mammogram, and 08/16/2018 mammogram - [facility]. Both breasts are heterogeneously dense, which may obscure small masses (category c / 51-75% glandular tissue). Current study was also evaluated with a Computer Aided Detection (CAD) system. There are benign vascular calcifications in both breasts. No significant masses, calcifications, or other findings are seen in either breast. There has been no significant interval change. IMPRESSION: BENIGN There is no mammographic evidence of malignancy. A 1 year screening mammogram is recommended. Based on the Tyrer Cuzick model (a risk assessment model) the patient's lifetime risk is 4.6% and her 10 year risk is 4.2%. According to the ACR, ACS, and NCCN guidelines, an annual breast MRI exam along with mammogram is recommended if the patient's lifetime risk is 20% or greater. This exam was interpreted at Station ID: [id number]. NOTE: For mammograms, a report in lay terms will be sent to the patient. Approximately 15% of breast malignancies will not be visualized mammographically. In the management of a palpable breast mass, a negative mammogram must not discourage biopsy of a clinically suspicious lesion. Electronically Signed By: Sage canela/nickie:01/05/2023 14:31:31 letter sent: Normal Exam ACR BI-RADS Category 2: Benign Finding(s) 3342F
--- NOTE | 2023-01-05 12:56 | DI.US.S_ITS ---
PROCEDURE: US ABDOMEN LIMITED INDICATIONS: elevated liver enzymes TECHNIQUE: Real-time scanning was performed of the abdominal and retroperitoneal organs, with image documentation. COMPARISON: None. FINDINGS: Liver: Liver is normal in size. Increased liver parenchymal echotexture is seen. No discrete hepatic lesion. Gallbladder: There is no gallstone. No gallbladder wall thickening or pericholecystic fluid. No sonographic Rios sign. Biliary ducts: Intrahepatic bile ducts are non-dilated. Extrahepatic bile duct caliber measures 3.7 mm. Normal is 6-7 mm or less in diameter, or 10 mm or less post-cholecystectomy. Pancreas: Visualized portions of the pancreas are sonographically normal. Spleen: Spleen is normal in size and homogeneous in echotexture. . Miscellaneous: No free abdominal fluid. IMPRESSION: 1. Hepatic steatosis, no discrete hepatic lesion. 2. Rest of the exam is unremarkable. Dictated by: Collin Linton M.D. on 01/05/2023 at 15:35 Approved by: Collin Linton M.D. on 01/05/2023 at 15:36
== END ==
PROVIDERS: Family Provider Registered Nurse Diabetes Educator; PCP Registered Nurse Diabetes Educator; Referring Provider Registered Nurse Diabetes Educator; Visit Provider Registered Nurse Diabetes Educator
DX: Z12.31 Encounter for screening mammogram for malignant neoplasm of breast (principal); R74.8 Abnormal levels of other serum enzymes; K76.0 Fatty (change of) liver, not elsewhere classified
CPT/HCPCS: 76705; 77063; 77067